=== PATIENT | male | born 2000 | race African-American/Black ===

== ENCOUNTER 2023-01-21 18:22 | Emergency (ER) | payer MEDICAID ==
[~2023-01-21] VITALS: Ht 170.2 cm; Wt 61.2 kg
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
--- NOTE | 2023-01-21 20:45 | NUR ---
18GA LEFT AC ESTABLISHED; BLOOD WORK COLLECTED, GIVEN TO [employer] INST[employer]ER AT BEDSIDE
[2023-01-21] MEDS ORDERED: IOHEXOL-300 100 ML VIAL IV ONE (20:48)
[2023-01-21] MEDS ORDERED: HYDROCODONE/APAP 10/325MG TABLET ONE (20:52)
[2023-01-21 20:56] LABS: BASOPHILS # (AUTO) 0.1 K/uL (0.0-0.2); BASOPHILS % (AUTO) 1.1 % (0.0-2.0); EOSINOPHILS % (AUTO) 2.6 % (0.0-6.0); HEMATOCRIT 39 % (39-51); HEMOGLOBIN 12.7 g/dL (13.5-17.5); LYMPHOCYTES # (AUTO) 1.6 K/uL (0.8-4.8); LYMPHOCYTES % (AUTO) 27.4 % (20.0-44.0); MEAN CORPUSCULAR HGB CONC 32 g/dl (31.0-36.0); MEAN CORPUSCULAR VOLUME 80 fL (80-96); MONOCYTES # (AUTO) 0.3 K/uL (0.1-1.30); MONOCYTES % (AUTO) 5.8 % (2.0-12.0); NEUTROPHILS # (AUTO) 3.7 K/uL (1.8-8.9); NEUTROPHILS % (AUTO) 63.1 % (43.0-81.0); PLATELET COUNT (AUTO) 274 K/uL (150-450); RED BLOOD CELL COUNT(AUTO) 4.94 MIL/uL (4.5-6.0); WHITE BLOOD COUNT (AUTO) 5.9 K/uL (4.3-11.0)
[2023-01-21] MEDS ORDERED: HYDROCODONE/APAP 10/325MG TABLET PO ONE (21:00)
--- NOTE | 2023-01-21 21:00 | NUR ---
PT TAKEN TO CT W/ TECH
[2023-01-21 21:06] LABS: CREATININE 1.2 mg/dL (0.6-1.3); POTASSIUM 3.8 mmol/L (3.5-5.1)
--- NOTE | 2023-01-21 21:10 | NUR ---
PT RETURNED FROM CT
--- NOTE | 2023-01-21 22:07 | NUR ---
URINE COLLECTED AND SENT TO LAB
[2023-01-21] MEDS ORDERED: DOCU-141 PO (22:46)
[2023-01-21] MEDS ORDERED: IBUP-1955 PO (22:46)
[2023-01-21 22:55] LABS: BILIRUBIN,URINE NEGATIVE (NEGATIVE); COLOR,URINE YELLOW (YELLOW); LEUKOCYTE ESTERASE ,URINE NEGATIVE (NEGATIVE); NITRITE, URINE NEGATIVE (NEGATIVE); PROTEIN,URINE TRACE mg/dl (NEGATIVE); UGLUCOSE NEGATIVE (NEGATIVE); UROBILINOGEN,URINE 0.2 EU/dL (0.2)
[2023-01-21 23:06] VITALS: BP 118/64; TEMP 98
--- NOTE | 2023-01-21 23:06 | NUR ---
UY=[id number], MADE AWARE
--- NOTE | 2023-01-21 23:06 | NUR ---
Patient discharged to home in stable condition. Written and verbal after care instructions given. Patient verbalizes understanding of instruction. IV removed. Catheter intact and site benign. Pressure and 4x4 applied to site. No bleeding noted.
--- NOTE | 2023-01-21 23:12 | NUR ---
Kam lee in [facility] - 01/21/23 at 2315 by MARGARITA [id number], MD MITTAL
[2023-01-21 23:14] LABS: BACTERIA,URINE None seen /HPF (None Seen); MUCUS,URINE Few /LPF (None Seen); RBC,URINE NONE SEEN /HPF (0-2); SQUAMOUS EPITHELIAL CELL,UR None Seen /HPF (None Seen); WBC,URINE 0-2 /HPF (0-3)
== END 2023-01-21 23:16 | disposition home or self-care (01) ==
LOC: ER 18:27
DX: S70.02XA Contusion of left hip, initial encounter (principal); S36.39XA Other injury of stomach, initial encounter; K59.00 Constipation, unspecified; Z60.2 Problems related to living alone; Z79.899 Other long term (current) drug therapy; V89.2XXA Person injured in unspecified motor-vehicle accident, traffic, initial encounter; Y93.89 Activity, other specified; Y92.89 Other specified places as the place of occurrence of the external cause; Y99.8 Other external cause status
CPT/HCPCS: 99285; 74177; 85025; 80048; 81001; 36415; 82962; Q9967